=== PATIENT | female | born 1955 | race Asian ===

== ENCOUNTER 2017-03-23 08:25 | Observation (INO) | payer OTHER ==
[2017-03-23] VITALS (42 sets, daily range): BP systolic 109–167; BP diastolic 58–81; PULSE 68–82; RESP 12–25; Ht 160 cm; Wt 68.2 kg
[~2017-03-23] VITALS: Ht 160 cm; Wt 68.2 kg
[~2017-03-23 08:25] MED LIST: ASPI81TA3 PO; ATOR40TA68 PO; CLOP75TA27 PO; FAMO20TA18 PO; ISOS20TA19 PO; METO25TA4 PO; NIT4 SL
[2017-03-23] MEDS ORDERED: ISOS30TA5 PO (09:26)
[2017-03-23] MEDS ORDERED: FAMO20TA18 PO (09:26)
[2017-03-23 10:04] LABS: BASOPHIL # 0.1 10^3/ul (0.0-0.1); BASOPHILS % 1.1 % (0.0-2.0); EOSINOPHILS # 0.2 10^3/ul (0.0-0.5); EOSINOPHILS % 2.1 % (0.0-7.0); HEMATOCRIT 40.5 % (37.0-47.0); HEMOGLOBIN 13.5 g/dl (12.0-16.0); LYMPHOCYTES # 2.7 10^3/ul (0.8-2.9); LYMPHOCYTES % 37.7 % (15.0-51.0); MEAN CORPUSCULAR HGB CONC 33.3 g/dl (32.0-37.0); MEAN CORPUSCULAR VOLUME 86.9 fl (82.0-101.0); MEAN PLATELET VOLUME 10.9 fl (7.4-10.4); MONOCYTE # 0.5 10^3/ul (0.3-0.9); MONOCYTES % 7.1 % (0.0-11.0); NEUTROPHIL # 3.6 10^3/ul (1.6-7.5); NEUTROPHILS % 51.7 % (39.0-77.0); PLATELET COUNT 290 10^3/UL (140-415); RED BLOOD COUNT 4.66 10^6/ul (4.20-5.40); RED CELL DISTRIBUTION WIDTH 12.5 % (11.5-14.5)
--- NOTE | 2017-03-23 10:09 | RADRPT ---
PROCEDURE: XR Chest. CLINICAL INDICATION: Preoperative TECHNIQUE: Single frontal view of the chest was obtained COMPARISON: None FINDINGS: The heart is enlarged. The thoracic aorta is calcified. There is mild right lower lobe linear atelectasis. The lungs are otherwise clear. There is no pleural effusion or pneumothorax. RPTAT: AA IMPRESSION: Mild cardiomegaly. Calcified aorta consistent with atherosclerotic disease. Mild right lower lobe linear atelectasis. .Patricio Paula MD, MD Date Time Electronically viewed and signed by .Patricio Paula MD, on 03/23/2017 10:09 .S/
[2017-03-23 10:17] LABS: INR 0.83; PROTIME 11.4 Sec (12.2-14.2); PT RATIO 0.9
[2017-03-23 10:18] LABS: PARTIAL THROMBOPLASTIN TIME 25.7 Sec (25.0-35.0)
[2017-03-23 10:24] LABS: ALBUMIN 4.7 g/dl (3.3-4.9); ALBUMIN/GLOBULIN RATIO 1.56; BILIRUBIN,INDIRECT 0.5 mg/dl (0-1.1); BILIRUBIN,TOTAL 0.5 mg/dl (0.2-1.3); CHOL/HDL RATIO 4.5 RATIO; TOTAL PROTEIN 7.7 g/dl (6.1-8.1)
[2017-03-23 10:36] LABS: CALCIUM 9.9 mg/dl (8.4-10.2); CREATININE 0.63 mg/dl (0.44-1.00); POTASSIUM 4.2 mmol/L (3.5-5.1)
[2017-03-23] MEDS ORDERED: LIDOCAINE 1% (MDV) 20 ML INJ ONE (11:10)
[2017-03-23] MEDS ORDERED: FENTAnyl 50 MCG/ML VIAL ONE (11:10)
[2017-03-23] MEDS ORDERED: IODIXANOL LOCM 100 ML BTL ONE ×2 (11:10→12:30)
[2017-03-23] MEDS ORDERED: VERAPAMIL 5 MG INJ ONE (11:10)
[2017-03-23] MEDS ORDERED: MIDAZOLAM 1 MG/ML 2 ML INJ ONE (11:10)
[2017-03-23] MEDS ORDERED: HEPARIN 1000 UNITS/ML 10 ML INJ ONE (11:10)
[2017-03-23] MEDS ORDERED: NITROGLYCERIN (IC) 100 MCG/ML INJ ONE (11:11)
[2017-03-23] MEDS ORDERED: CLOPIDOGREL 300 MG TAB ONE (12:26)
[2017-03-23] MEDS ORDERED: ASPIRIN 325 MG TAB ONE (12:26)
[2017-03-23] MEDS ORDERED: IOHEXOL 350MG/ML 50 ML BTL ONE (12:30)
[2017-03-23] MEDS ORDERED: SOD CHLORIDE 0.9% 1,000 ML IV SCH (12:35)
[2017-03-23] MEDS ORDERED: DIAZEPAM 2 MG TAB PO PRN (13:00)
[2017-03-23] MEDS ORDERED: ZOLPIDEM 5 MG TAB PO PRN (13:00)
[2017-03-23] MEDS ORDERED: AL HYDROX/MG HYDROX/SIMETH 30 ML CUP PO PRN (13:00)
[2017-03-23] MEDS ORDERED: ACETAMINOPHEN 325 MG TAB PO PRN (13:00)
[2017-03-23] MEDS ORDERED: ONDANSETRON 4 MG INJ IV PRN (13:00)
[2017-03-23] MEDS ORDERED: OXYCODONE/ACETAMINOPHEN (5/325) TAB PO PRN (13:00)
[2017-03-23] MEDS ORDERED: BIVALIRUDIN 250MG /NS 50 ML 50 ML IVPB ONE (14:36)
[2017-03-23] MEDS ORDERED: NITROGLYCERIN (SL) 0.4 MG TAB SL PRN (18:30)
[2017-03-23 19:38] LABS: CK-MB 1.35 ng/ml (0.0-2.4)
[2017-03-23 19:47] LABS: TROPONIN-I 0.194 ng/ml (0.00-0.12)
--- NOTE | 2017-03-23 20:02 | QN ---
Documentation Comment [id number] p HAYLEE MEJNIVAR MD Mar 23, 2017 20:02
[2017-03-24] VITALS (23 sets, daily range): BP systolic 110–243; BP diastolic 43–132; PULSE 50–87; RESP 13–21
[2017-03-24 06:51] LABS: BASOPHIL # 0.1 10^3/ul (0.0-0.1); BASOPHILS % 0.8 % (0.0-2.0); EOSINOPHILS # 0.2 10^3/ul (0.0-0.5); EOSINOPHILS % 1.8 % (0.0-7.0); HEMATOCRIT 40.6 % (37.0-47.0); HEMOGLOBIN 13.3 g/dl (12.0-16.0); LYMPHOCYTES # 2.5 10^3/ul (0.8-2.9); LYMPHOCYTES % 28.6 % (15.0-51.0); MEAN CORPUSCULAR HEMOGLOBIN 28.7 pg (29.0-33.0); MEAN CORPUSCULAR HGB CONC 32.8 g/dl (32.0-37.0); MEAN CORPUSCULAR VOLUME 87.5 fl (82.0-101.0); MEAN PLATELET VOLUME 11.1 fl (7.4-10.4); MONOCYTE # 0.7 10^3/ul (0.3-0.9); MONOCYTES % 7.7 % (0.0-11.0); NEUTROPHIL # 5.3 10^3/ul (1.6-7.5); NEUTROPHILS % 60.8 % (39.0-77.0); PLATELET COUNT 288 10^3/UL (140-415); RED BLOOD COUNT 4.64 10^6/ul (4.20-5.40); RED CELL DISTRIBUTION WIDTH 12.3 % (11.5-14.5); WHITE BLOOD COUNT 8.7 10^3/ul (4.8-10.8)
--- NOTE | 2017-03-24 07:36 | CARRPT ---
DATE OF PROCEDURE: 03/23/2017 PROCEDURE: 1. Left heart catheterization. 2. Coronary angiography. 3. Measuring left ventricular and diastolic pressure. 4. Percutaneous transluminal coronary angioplasty with placement of Synergy drug eluding stent times 1 to obtuse marginal 2.5 by 60 mm. 5. Moderate sedation times 60 minutes. ATTENDING PHYSICIAN: Dr. Isacc Patel. REFERRING PHYSICIAN: Self referred. INDICATIONS: Chest pain consistent with Unstable angina TYPE OF ANESTHESIA: Local. BRIEF HISTORY: The patient is a 61-year-old female with history of hypertension, dyslipidemia, who presented with complaints of substernal chest pain on maximal medical therapy. The patient subsequently was brought to the cardiac labor utilization superintendent. PROCEDURE: After informed consent was obtained DICTATION IS INAUDIBLE. TROUBLE ON THE LINE. Dictated By: Abraham Dela Cruz /[email or web address] /Document#: [id number]
[2017-03-24 07:42] LABS: CALCIUM 9.5 mg/dl (8.4-10.2); CREATININE 0.68 mg/dl (0.44-1.00); POTASSIUM 4.1 mmol/L (3.5-5.1)
[2017-03-24] MEDS: ASPIRIN (EC) 325 MG TAB PO SCH (08:05)
[2017-03-24] MEDS: CLOPIDOGREL 75 MG TAB PO SCH (08:05)
--- NOTE | 2017-03-24 10:44 | PN ---
Date/Time of Note Date/Time of Note DATE: 03/24/17 TIME: 10:41 Assessment/Plan VTE Prophylaxis VTE Prophylaxis Intervention: SCD's Lines/Catheters IV [facility]from [facility] Saline Lock Assessment/Plan Chief Complaint/Hosp Course 1. S/p eft heart catheterization. 2. Coronary angiography. 3. S/P percutaneous transluminal coronary angioplasty with placement of stent 4. Hypertension 5. CAD 6. Hypertension, controlled Problems: Assessment/Plan 1. Possible discharge if cleared with dr Patel Subjective 24 Hr Interval Summary Constitutional: improved, no complaints Musculoskeletal: restricted range of motion (right arm) Exam/Review of Systems Vital Signs Vitals Vital Signs Date Time Temp Pulse Resp B/P Pulse Ox O2 Delivery O2 Flow Rate FiO2 03/24/17 08:00 98.4 74 18 138/70 95 03/24/17 07:00 Room Air Intake and Output 03/23/17 03/23/17 03/24/17 15:00 23:00 07:00 Intake Total 335 ml 375 ml Balance 335 ml 375 ml Exam Constitutional: alert Psych: no complaints Respiratory: clear to auscultation Cardiovascular: regular rate and rhythm Gastrointestinal: soft Results Result Diagram: 03/24/17 0603 03/24/17 0603 Results 24 hrs Laboratory Tests Test 03/23/17 18:40 03/24/17 06:03 Creatine Kinase 111 Creatine Kinase Index 1.2 Creatinine Kinase MB (Mass) 1.35 Troponin I 0.194 *H White Blood Count 8.7 # Red Blood Count 4.64 Hemoglobin 13.3 Hematocrit 40.6 Mean Corpuscular Volume 87.5 Mean Corpuscular Hemoglobin 28.7 L Mean Corpuscular Hemoglobin Concent 32.8 Red Cell Distribution Width 12.3 Platelet Count 288 Mean Platelet Volume 11.1 H Neutrophils % 60.8 Lymphocytes % 28.6 Monocytes % 7.7 Eosinophils % 1.8 Basophils % 0.8 Nucleated Red Blood Cells % 0.0 Neutrophils # 5.3 Lymphocytes # 2.5 Monocytes # 0.7 Eosinophils # 0.2 Basophils # 0.1 Nucleated Red Blood Cells # 0.0 Sodium Level 144 Potassium Level 4.1 Chloride Level 104 Carbon Dioxide Level 26 Anion Gap 18 H Blood Urea Nitrogen 14 Creatinine 0.68 Glucose Level 147 Calcium Level 9.5 Medications Medications Current Medications Aspirin (Ecotrin) 325 mg DAILY PO Last administered on 03/24/17 08:05; Admin Dose 325 MG; Start 03/24/17 at 09:00 Clopidogrel Bisulfate (plaVIX) 75 mg DAILY PO Last administered on 03/24/17 08 :05; Admin Dose 75 MG; Start 03/24/17 at 09:00 Acetaminophen (Tylenol Tab) 650 mg Q4H PRN PO NON-CARDIAC PAIN LEVEL 1-3; Start 03/23/17 at 13:00 Oxycodone/ Acetaminophen (Percocet (5/ 325)) 1 tab Q4H PRN PO REPORTED NON- CARDIAC PAIN 4-7; Start 03/23/17 at 13:00 Diazepam (Valium) 2 mg Q6H PRN PO RESTLESSNESS; Start 03/23/17 at 13:00 Al Hydrox/Mg Hydrox/Simethicone (Mag-Al Plus) 30 ml Q4H PRN PO GASTROINTESTINAL UPSET; Start 03/23/17 at 13:00 Ondansetron HCl (Zofran Inj) 4 mg Q4H PRN IV NAUSEA AND/OR VOMITING; Start at 13:00 Nitroglycerin (Nitroglycerin (Sl Tab) 0.4 Mg) 1 tab Q5M PRN SL ANGINA; Start at 18:30 LEANDRO DEL TORO Mar 24, 2017 10:44
--- NOTE | 2017-03-24 11:35 | CONS ---
Date/Time of Note Date/Time of Note DATE: 03/24/17 TIME: 11:24 Assessment/Plan Assessment/Plan Chief Complaint/Hosp Course IMP: 1.POD#1 s/p PTCA/stent x 1 to LCX/OM with LUDWIN 2.HTN-uncontrolled 3.Dyslipidemia 4. abnl ecg Recc: -Tele -serial ecg's -Continue asa/plavix -resume lipitor -resume baseline BB -start ACEI -trend troponin -If BP stable and asymptomatic ok for d/c home otherwise ok to telemetry Problems: Consultation Date/Type/Reason Admit Date/Time Mar 23, 2017 at 20:20 Initial Consult Date 03/23/2017 Type of Consultation: cardiology Reason for Consultation chest pain s/p ptca/stent Referring Provider: HAYLEE MENJIVAR MD Exam/Review of Systems Vital Signs Vitals Vital Signs Date Time Temp Pulse Resp B/P Pulse Ox O2 Delivery O2 Flow Rate FiO2 03/24/17 08:00 98.4 74 18 138/70 95 03/24/17 07:00 Room Air Intake and Output 03/23/17 03/23/17 03/24/17 15:00 23:00 07:00 Intake Total 335 ml 375 ml Balance 335 ml 375 ml Exam Review of Systems: CONSTITUTIONAL: No fevers, chills. PULMONARY: No sob CARDIOVASCULAR: No chest pain/palpitations GASTROINTESTINAL: No nausea/vomiting. GENITOURINARY: No hematuria/dysuria. MUSCULOSKELETAL: No myagias/arthalgias. PSYCHIATRIC: The patient denies depression. NEUROLOGIC: No weakness Constitutional: alert Psych: no complaints Head: normocephalic ENMT: mucosa pink and moist Neck: jvd (8-9 cm water), supple Respiratory: diminished breath sounds (at bases/B) Cardiovascular: regular rate and rhythm Gastrointestinal: non-tender, soft Musculoskeletal: muscle tone (normal) Extremities: edema (none), other (R arm covered by dressing) Neurological: other (No focal deficits) Results Result Diagram: 03/24/17 0603 03/24/17 0603 Results 24 hrs Laboratory Tests Test 03/23/17 18:40 03/24/17 06:03 Creatine Kinase 111 Creatine Kinase Index 1.2 Creatinine Kinase MB (Mass) 1.35 Troponin I 0.194 *H White Blood Count 8.7 # Red Blood Count 4.64 Hemoglobin 13.3 Hematocrit 40.6 Mean Corpuscular Volume 87.5 Mean Corpuscular Hemoglobin 28.7 L Mean Corpuscular Hemoglobin Concent 32.8 Red Cell Distribution Width 12.3 Platelet Count 288 Mean Platelet Volume 11.1 H Neutrophils % 60.8 Lymphocytes % 28.6 Monocytes % 7.7 Eosinophils % 1.8 Basophils % 0.8 Nucleated Red Blood Cells % 0.0 Neutrophils # 5.3 Lymphocytes # 2.5 Monocytes # 0.7 Eosinophils # 0.2 Basophils # 0.1 Nucleated Red Blood Cells # 0.0 Sodium Level 144 Potassium Level 4.1 Chloride Level 104 Carbon Dioxide Level 26 Anion Gap 18 H Blood Urea Nitrogen 14 Creatinine 0.68 Glucose Level 147 Calcium Level 9.5 Medications Medications Current Medications Aspirin (Ecotrin) 325 mg DAILY PO Last administered on 03/24/17 08:05; Admin Dose 325 MG; Start 03/24/17 at 09:00 Clopidogrel Bisulfate (plaVIX) 75 mg DAILY PO Last administered on 03/24/17 08 :05; Admin Dose 75 MG; Start 03/24/17 at 09:00 Acetaminophen (Tylenol Tab) 650 mg Q4H PRN PO NON-CARDIAC PAIN LEVEL 1-3; Start 03/23/17 at 13:00 Oxycodone/ Acetaminophen (Percocet (5/ 325)) 1 tab Q4H PRN PO REPORTED NON- CARDIAC PAIN 4-7; Start 03/23/17 at 13:00 Diazepam (Valium) 2 mg Q6H PRN PO RESTLESSNESS; Start 03/23/17 at 13:00 Al Hydrox/Mg Hydrox/Simethicone (Mag-Al Plus) 30 ml Q4H PRN PO GASTROINTESTINAL UPSET; Start 03/23/17 at 13:00 Ondansetron HCl (Zofran Inj) 4 mg Q4H PRN IV NAUSEA AND/OR VOMITING; Start at 13:00 Nitroglycerin (Nitroglycerin (Sl Tab) 0.4 Mg) 1 tab Q5M PRN SL ANGINA; Start at 18:30 CARSON BACK Mar 24, 2017 11:35
[2017-03-24] MEDS: METOPROLOL 25 MG TAB PO SCH ×2 (11:59→21:00)
[2017-03-24] MEDS: BENAZEPRIL 20 MG TAB PO SCH ×2 (11:59→21:00)
[2017-03-24] MEDS ORDERED: hydrALAzine 20 MG INJ IV PRN (12:00)
--- NOTE | 2017-03-24 19:00 | RADRPT ---
Vent Rate: 72 bpm RR Interval: 0 msec MO Interval: 190 msec QRS Duration: 96 msec QT Interval: 418 msec QTC Interval: 457 msec P-R-T [place]: 48 - 29 - 35 degrees Normal sinus rhythm Normal ECG Electronically Signed By: Odilon Light [id number]
--- NOTE | 2017-03-24 19:03 | RADRPT ---
Vent Rate: 73 bpm RR Interval: 0 msec GA Interval: 194 msec QRS Duration: 86 msec QT Interval: 408 msec QTC Interval: 449 msec P-R-T [place]: 60 - 60 - 46 degrees Normal sinus rhythm Nonspecific T wave abnormality Abnormal ECG Electronically Signed By: Odilon Light [id number]
--- NOTE | 2017-03-24 19:05 | RADRPT ---
Vent Rate: 68 bpm RR Interval: 0 msec SC Interval: 160 msec QRS Duration: 90 msec QT Interval: 412 msec QTC Interval: 438 msec P-R-T [place]: 63 - 47 - 44 degrees Normal sinus rhythm Nonspecific T wave abnormality Abnormal ECG Electronically Signed By: Odilon Light [id number]
[2017-03-24] MEDS ORDERED: ATORVASTATIN 40 MG TAB PO SCH (21:00)
[2017-03-25] VITALS (8 sets, daily range): BP systolic 101–116; BP diastolic 43–58; PULSE 52–66; RESP 15–18
[2017-03-25] MEDS: ASPIRIN (EC) 325 MG TAB PO SCH (10:10)
[2017-03-25] MEDS: CLOPIDOGREL 75 MG TAB PO SCH (10:10)
[2017-03-25] MEDS: METOPROLOL 25 MG TAB PO SCH (10:11)
[2017-03-25] MEDS: BENAZEPRIL 20 MG TAB PO SCH (10:12)
[2017-03-25 10:36] LABS: BASOPHIL # 0.1 10^3/ul (0.0-0.1); BASOPHILS % 0.9 % (0.0-2.0); EOSINOPHILS # 0.2 10^3/ul (0.0-0.5); HEMATOCRIT 40.3 % (37.0-47.0); HEMOGLOBIN 13.2 g/dl (12.0-16.0); LYMPHOCYTES # 2.5 10^3/ul (0.8-2.9); LYMPHOCYTES % 32.3 % (15.0-51.0); MEAN CORPUSCULAR HEMOGLOBIN 28.7 pg (29.0-33.0); MEAN CORPUSCULAR HGB CONC 32.8 g/dl (32.0-37.0); MEAN CORPUSCULAR VOLUME 87.6 fl (82.0-101.0); MEAN PLATELET VOLUME 11.2 fl (7.4-10.4); MONOCYTE # 0.4 10^3/ul (0.3-0.9); MONOCYTES % 5.1 % (0.0-11.0); NEUTROPHIL # 4.5 10^3/ul (1.6-7.5); NEUTROPHILS % 59.3 % (39.0-77.0); PLATELET COUNT 286 10^3/UL (140-415); RED CELL DISTRIBUTION WIDTH 12.3 % (11.5-14.5); WHITE BLOOD COUNT 7.6 10^3/ul (4.8-10.8)
--- NOTE | 2017-03-25 10:45 | PDOCDIS ---
Discharge Instructions CONDITION Patient Condition: Good HOME CARE INSTRUCTIONS: Diet Instructions: Low Fat /CholesterolSpecial Diet: cardiac ACTIVITY: Activity Restrictions: Slowly Increase Activity FOLLOW UP/APPOINTMENTS Follow-up Plan Dr Patel 1-2 weeks LEANDRO DEL TORO Mar 25, 2017 10:45
[2017-03-25] MEDS ORDERED: ASPI325T32 PO (10:47)
--- NOTE | 2017-03-25 10:48 | PN ---
Date/Time of Note Date/Time of Note DATE: 03/25/17 TIME: 10:47 Assessment/Plan VTE Prophylaxis VTE Prophylaxis Intervention: ambulation Lines/Catheters IV [facility] Saline Lock Assessment/Plan Chief Complaint/Hosp Course 1. S/p left heart catheterization. 2. Coronary angiography. 3. S/P percutaneous transluminal coronary angioplasty with placement of stent 4. Hypertension, controlled 5. CAD Problems: Subjective 24 Hr Interval Summary Constitutional: improved, no complaints Cardiovascular: chest pain, edema, no complaints, No lightheadedness, No orthopenea, No other, No palpitations, No paroxysmal nocturnal dyspnea Gastrointestinal: no complaints Exam/Review of Systems Vital Signs Vitals Vital Signs Date Time Temp Pulse Resp B/P Pulse Ox O2 Delivery O2 Flow Rate FiO2 03/25/17 08:17 64 03/25/17 07:40 97.8 18 116/58 96 03/24/17 07:00 Room Air Intake and Output 03/24/17 03/24/17 03/25/17 15:00 23:00 07:00 Intake Total 720 ml 480 ml 220 ml Balance 720 ml 480 ml 220 ml Exam Eyes: nl conjunctiva ENMT: nl external ears & nose Neck: supple Respiratory: clear to auscultation Cardiovascular: regular rate and rhythm Gastrointestinal: soft Results Result Diagram: 03/25/17 0936 03/24/17 0603 Results 24 hrs Laboratory Tests Test 03/24/17 12:46 03/25/17 09:36 Troponin I 0.046 White Blood Count 7.6 Red Blood Count 4.60 Hemoglobin 13.2 Hematocrit 40.3 Mean Corpuscular Volume 87.6 Mean Corpuscular Hemoglobin 28.7 L Mean Corpuscular Hemoglobin Concent 32.8 Red Cell Distribution Width 12.3 Platelet Count 286 Mean Platelet Volume 11.2 H Neutrophils % 59.3 Lymphocytes % 32.3 Monocytes % 5.1 Eosinophils % 2.0 Basophils % 0.9 Nucleated Red Blood Cells % 0.0 Neutrophils # 4.5 Lymphocytes # 2.5 Monocytes # 0.4 Eosinophils # 0.2 Basophils # 0.1 Nucleated Red Blood Cells # 0.0 Medications Medications Current Medications Aspirin (Ecotrin) 325 mg DAILY PO Last administered on 03/25/17t 10:10; Admin Dose 325 MG; Start 03/24/17 at 09:00 Clopidogrel Bisulfate (plaVIX) 75 mg DAILY PO Last administered on 03/25/17 10 :10; Admin Dose 75 MG; Start 03/24/17 at 09:00 Acetaminophen (Tylenol Tab) 650 mg Q4H PRN PO NON-CARDIAC PAIN LEVEL 1-3; Start 03/23/17 at 13:00 Oxycodone/ Acetaminophen (Percocet (5/ 325)) 1 tab Q4H PRN PO REPORTED NON- CARDIAC PAIN 4-7 Last administered on 03/24/17 21:17; Admin Dose 1 TAB; Start 03/23/17 at 13:00 Diazepam (Valium) 2 mg Q6H PRN PO RESTLESSNESS; Start 03/23/17 at 13:00 Al Hydrox/Mg Hydrox/Simethicone (Mag-Al Plus) 30 ml Q4H PRN PO GASTROINTESTINAL UPSET; Start 03/23/17 at 13:00 Ondansetron HCl (Zofran Inj) 4 mg Q4H PRN IV NAUSEA AND/OR VOMITING; Start at 13:00 Nitroglycerin (Nitroglycerin (Sl Tab) 0.4 Mg) 1 tab Q5M PRN SL ANGINA; Start at 18:30 Metoprolol Tartrate (Lopressor) 25 mg BID PO Last administered on 03/25/17 10: 11; Admin Dose 25 MG; Start 03/24/17 at 12:00 Benazepril HCl (Lotensin) 20 mg BID PO Last administered on 03/25/17 10:12; Admin Dose 20 MG; Start 03/24/17 at 12:00 Hydralazine HCl (Apresoline) 10 mg Q4H PRN IV SBP>170; Start 03/24/17 at 12:00 Atorvastatin Calcium (Lipitor) 40 mg HS PO Last administered on 03/24/17 21:04 ; Admin Dose 40 MG; Start 03/24/17 at 21:00 LEANDRO DEL TORO Mar 25, 2017 10:48
--- NOTE | 2017-03-25 10:51 | CONS ---
Date/Time of Note Date/Time of Note DATE: 03/25/17 TIME: 10:46 Assessment/Plan Assessment/Plan Additional Assessment/Plan 1.CAD - s/p PTCA/stent x 1 to LCX/OM with LUDWIN - con't med rx , no ectopy on tele now 2.HTN-better controlled, will adjust Rx as needed 3.Dyslipidemia - on Rx 4. abnl ecg - no Cp now Consultation Date/Type/Reason Admit Date/Time Mar 23, 2017 at 20:20 Initial Consult Date Type of Consultation: cardiology Referring Provider: HAYLEE MENJIVAR MD 24 HR Interval Summary Free Text/Dictation NO acute change - s/p LHC - plan to dispo now ROS: No fever, no chills, no nausea, no vomiting, no diarrhea/constipation No recent weight changes No chest pain, no PND, no orthopnea No dizziness, blurred vision No thirst, no heat or cold intolerance Exam/Review of Systems Vital Signs Vitals Vital Signs Date Time Temp Pulse Resp B/P Pulse Ox O2 Delivery O2 Flow Rate FiO2 03/25/17 08:17 64 03/25/17 07:40 97.8 18 116/58 96 03/24/17 07:00 Room Air Intake and Output 03/24/17 03/24/17 03/25/17 15:00 23:00 07:00 Intake Total 720 ml 480 ml 220 ml Balance 720 ml 480 ml 220 ml Exam General: WN/WD/NAD, AOx 3 HEENT: Unicetric/atraumatic/EOMI (follow commands) NECK: JVD elevated, no thyromegaly Lymph: no lymphadenopathy HEART: regular with no S3, II/ systolic murmur at apex LUNGS: Coarse sounds ABD: soft, NT, ND, +BS : Intact Neuro: non focal SKIN: chronic changes EXT: trace edema Results Result Diagram: 03/25/17 0936 03/24/17 0603 Results 24 hrs Laboratory Tests Test 03/24/17 12:46 03/25/17 09:36 Troponin I 0.046 White Blood Count 7.6 Red Blood Count 4.60 Hemoglobin 13.2 Hematocrit 40.3 Mean Corpuscular Volume 87.6 Mean Corpuscular Hemoglobin 28.7 L Mean Corpuscular Hemoglobin Concent 32.8 Red Cell Distribution Width 12.3 Platelet Count 286 Mean Platelet Volume 11.2 H Neutrophils % 59.3 Lymphocytes % 32.3 Monocytes % 5.1 Eosinophils % 2.0 Basophils % 0.9 Nucleated Red Blood Cells % 0.0 Neutrophils # 4.5 Lymphocytes # 2.5 Monocytes # 0.4 Eosinophils # 0.2 Basophils # 0.1 Nucleated Red Blood Cells # 0.0 Medications Medications Current Medications Aspirin (Ecotrin) 325 mg DAILY PO Last administered on 03/25/17 10:10; Admin Dose 325 MG; Start 03/24/17 at 09:00 Clopidogrel Bisulfate (plaVIX) 75 mg DAILY PO Last administered on 03/25/17 10 :10; Admin Dose 75 MG; Start 03/24/17 at 09:00 Acetaminophen (Tylenol Tab) 650 mg Q4H PRN PO NON-CARDIAC PAIN LEVEL 1-3; Start 03/23/17 at 13:00 Oxycodone/ Acetaminophen (Percocet (5/ 325)) 1 tab Q4H PRN PO REPORTED NON- CARDIAC PAIN 4-7 Last administered on 03/24/17 21:17; Admin Dose 1 TAB; Start 03/23/17 at 13:00 Diazepam (Valium) 2 mg Q6H PRN PO RESTLESSNESS; Start 03/23/17 at 13:00 Al Hydrox/Mg Hydrox/Simethicone (Mag-Al Plus) 30 ml Q4H PRN PO GASTROINTESTINAL UPSET; Start 03/23/17 at 13:00 Ondansetron HCl (Zofran Inj) 4 mg Q4H PRN IV NAUSEA AND/OR VOMITING; Start at 13:00 Nitroglycerin (Nitroglycerin (Sl Tab) 0.4 Mg) 1 tab Q5M PRN SL ANGINA; Start at 18:30 Metoprolol Tartrate (Lopressor) 25 mg BID PO Last administered on 03/25/17 10: 11; Admin Dose 25 MG; Start 03/24/17 at 12:00 Benazepril HCl (Lotensin) 20 mg BID PO Last administered on 03/25/17 10:12; Admin Dose 20 MG; Start 03/24/17 at 12:00 Hydralazine HCl (Apresoline) 10 mg Q4H PRN IV SBP>170; Start 03/24/17 at 12:00 Atorvastatin Calcium (Lipitor) 40 mg HS PO Last administered on 03/24/17t 21:04 ; Admin Dose 40 MG; Start 03/24/17 at 21:00 ISIDRO MERCER MD Mar 25, 2017 10:51
[2017-03-25 10:57] LABS: CALCIUM 9.8 mg/dl (8.4-10.2); CREATININE 0.68 mg/dl (0.44-1.00); POTASSIUM 4.2 mmol/L (3.5-5.1)
--- NOTE | 2017-03-27 10:02 | HP ---
DATE OF ADMISSION: 03/23/2017 HISTORY OF PRESENT ILLNESS: The patient is a 61-year-old female with a history of hypertension, dyslipidemia, CAD, history of coronary angiogram and PCI in the past. The patient now presents with CAD. She underwent coronary angiogram and PCI again. The patient is being admitted for further management. The patient has some chest pain, is going to be going to the ICU. Denies any fevers and chills. PAST MEDICAL HISTORY: Positive for hypertension, dyslipidemia, history of coronary angiogram and PCI, history of rhabdomyolysis, history of . ALLERGIES: PENICILLIN. SOCIAL HISTORY: Negative. FAMILY HISTORY: Negative. HOME MEDICATIONS: 1. Aspirin. 2. Lipitor. 3. Plavix. 4. Pepcid. 5. Isosorbide. 6. Metoprolol. 7. Nitroglycerin. REVIEW OF SYSTEMS: HEENT: Unremarkable. Respiratory: Unremarkable. CVS: Unremarkable, except as mentioned. Abdomen: Unremarkable. Extremities: Unremarkable. PHYSICAL EXAMINATION: GENERAL: The patient is a awake, alert. VITAL SIGNS: Stable. Pulse 74, blood pressure 151/65. HEENT: Atraumatic, normocephalic. Pupils are equal and reactive to light. NECK: Supple. No JVD. LUNGS: Clear. ABDOMEN: Soft, nontender. Bowel sounds are presents. No palpable masses. No hepatosplenomegaly. No guarding or rebound tenderness. EXTREMITIES: No cyanosis, clubbing, or edema. UTILITIES GROUND WORKER: The patient is awake, alert, with no focal deficits. LABORATORY DATA: Hematocrit 40.5, sodium 146, troponin 0.94. IMPRESSION: 1. Above status post coronary angiogram and percutaneous coronary intervention. 2. History of coronary artery disease and percutaneous coronary intervention. Positive troponin. 3. Hypertension. 4. Cardiomegaly. 5. Hypernatremia. 6. History of dyslipidemia. PLAN: Follow recommendations from Dr. Patel. Continue post cath medications, cardiac diet, and laboratory data will be followed. Dictated By: Sylvester Araya MD /[email or web address]/[email or web address] /Document#: [id number]
== END 2017-03-25 13:14 | disposition home or self-care (01) ==
LOC: SDS 08:25 → ICU 20:20 → SDS 20:20 → TEL 03-24 18:25
PROVIDERS: ADMIT Internal Medicine; ATTEND Internal Medicine
DX: I25.10 Atherosclerotic heart disease of native coronary artery without angina pectoris (principal); Z98.61 Coronary angioplasty status; I10 Essential (primary) hypertension; E78.5 Hyperlipidemia, unspecified; Z88.0 Allergy status to penicillin; Z79.82 Long term (current) use of aspirin; Z79.02 Long term (current) use of antithrombotics/antiplatelets; I51.7 Cardiomegaly; E87.0 Hyperosmolality and hypernatremia
CPT/HCPCS: 71010; 80048; 80053; 80061; 82550; 82553; 84484; 85025; 85610; 85730; 87081; 93005; 93458; C1725; C1769; C1874; C1887; C9600; J0583; J1644; J2250; J3010; Q9967; Z7500; Z7610; G0378